=== PATIENT | female | born 1980 | race Caucasian/White ===

== ENCOUNTER 2016-09-03 20:12 | Observation (INO) | payer OTHER ==
[~2016-09-03] VITALS: Ht 167.6 cm; Wt 86.3 kg
--- NOTE | ~2016-09-03 | EKG ---
[place] [address] [facility] [place] [address] ELECTROCARDIOGRAM REPORT Name: RONALD IRWIN FILIFEUGENRooharmeet #: REG [facility]PITALTonya#: [id number] Admission: 09/03/16 Attend Phys: Discharge: Date of : 84 Report #: [id number] THIS REPORT FOR: //name// [facility] ED Test Date: 2016-09-03 Test Time: 20:30:45 Pat Name: RONALD IRWIN Department: Room: Gender: F [employer] Supervisor: REA : 1980 Requested By: Samira Still Order Number: [id number] MD: Monster Rodriguez Measurements Intervals Barnes Rate: 69 P: 4 HI: 162 QRS: 78 QRSD: 89 T: 47 QT: 399 QTc: 428 Interpretive Statements Sinus rhythm Low voltage, precordial leads Compared to ECG 07/14/2015 20:05:12 No significant changes Electronically Signed On 09-03-2016 22:12:32 CDT by Monster Rodriguez [email or web address] <ELECTRONICALLY SIGNED> By: Monster Rodriguez MD 09/03/16 2212 29 29 Monster Rodriguez MD /MARYLIN
--- NOTE | ~2016-09-03 | 2DMMODE ---
[facility] [address] [place] [address] 2 D/M-MODE ECHOCARDIOGRAM Name: RONALD IRWINNRoom #: 441-P ADM IN M.R.#: [id number] Admission: 09/03/16 Attend Phys: Reagan Adam, Discharge: Date of : 84 Date of Service: 09/04/16 1100 Report #: [id number] THIS REPORT FOR: //name// APPROVED REPORT Study performed: 09/04/2016 09:49:30 EXAM: Comprehensive 2D, Doppler, and color-flow Echocardiogram Patient Location: Echo lab Room #: 441 Status: routine Other Information Study Quality: Adequate Indications Chest Pain Post , SOA, AFIB 2D Dimensions RVDd: 38.37 mm LVEF(%): 68.10 (>50%) IVSd: 9.53 (7-11mm) LVOT Diam: 20.65 (18-24mm) LVDd: 48.88 mm PWd: 10.66 (7-11mm) Ascending Ao: 27.18 (22-36mm) LVDs: 30.27 (25-40mm) Aortic Root: 30.75 mm Maria's LVEF: 68.10 % Volumes Left Atrial Volume (Systole) Single Plane 4CH: 41.33 mL Single Plane 2CH: 48.81 mL LA ESV Index: 24.00 mL/m2 Aortic Valve AoV Peak Jeremy.: 1.36 m/s AO Peak Gr.: 7.44 mmHg LVOT Max P.12 mmHg LVOT Max V: 1.13 m/s RUSS Vmax: 2.78 cm2 Mitral Valve E/A Ratio: 1.0 MV Decel. Time: 328.81 ms MV E Max Jeremy.: 0.69 m/s MV A Jeremy.: 0.68 m/s MV PHT: 95.36 ms [facility] [place] [address] 2 D/M-MODE ECHOCARDIOGRAM Name: RONALD IRWINNRoom #: 441-P ADM IN M.R.#: [id number] Admission: 09/03/16 Attend Phys: Reagan Adam, Discharge: Date of : 84 Date of Service: 09/04/16 1100 Report #: [id number] IVRT: 96.89 ms Pulmonary Valve PV Peak Jeremy.: 1.25 m/s PV Peak Gr.: 6.24 mmHg Pulmonary Vein P Vein S: 0.63 m/s P Vein A: 0.34 m/s P Vein D: 0.58 m/s P Vein A Dur.: 101.5 msec P Vein S/D Ratio: 1.09 Tricuspid Valve TR Peak Jeremy.: 2.03 m/s RAP Estimate: 5.00 mmHg TR Peak Gr.: 16.43 mmHg PA Pressure: 21.00 mmHg Left Ventricle The left ventricle is normal size. There is normal LV segmental wall motion. There is normal left ventricular wall thickness. The left ventricular systolic function is normal. The left ventricular ejection fraction is within the normal range. LVEF is 65%. The left ventricular diastolic function is normal. Right Ventricle The right ventricle is normal size. Atria The left atrium size is normal. The right atrium size is normal. Aortic Valve The aortic valve is normal in structure. No aortic regurgitation is present. There is no aortic valvular stenosis. Mitral Valve The mitral valve is normal in structure. Trace mitral regurgitation. No evidence of mitral valve stenosis. Tricuspid Valve The tricuspid valve is normal in structure. There is trace tricuspid regurgitation. The right atrial pressure is estimated at 5 mmHg. There is no pulmonary hypertension. Pulmonic Valve The pulmonary valve is normal in structure. There is no pulmonic [place] [address] 2 D/M-MODE ECHOCARDIOGRAM Name: RONALD IRWIN WITBOLSFEUGENRoom #: 441-P ADM IN M.R.#: [id number] Admission: 09/03/16 Attend Phys: Reagan Adam, Discharge: Date of : 84 Date of Service: 09/04/16 1100 Report #: [id number] Great Vessels The aortic root is normal in size. The ascending aorta is normal in size. IVC is normal in size and collapses >50% with inspiration. Pericardium There is no pericardial effusion. <Conclusion> 1. Normal echocardiogram with Doppler. EF 65% 2. No pericardial effusion <ELECTRONICALLY SIGNED> By: Luis Felipe Wilson MD, FACC 09/04/16 1100 1100 1100 Luis Felipe Wilson MD, FACC /INF
[~2016-09-03 20:12] MED LIST: BAYER CHEWABLE81 MG PO; COLACE100 MG PO; CYMBALTA20 MG; DARVOCET-N 1001 EACH PO; DILAUDID2 M1 PO; DOXYCYCLINE 10100 M1 PO; FLEXERIL PO; IBUPROFEN 800800 MG PO; IRON325 PO; LOESTRIN1 EAC1 PO; LOW-OGESTREL1 EACH; MULTIVITAMINS PO; NORCO 5-325 TA1 EACH PO; NORFLEX100 MG PO; OXECTA5 MG PO; PERCOCET 5-3251 EACH PO; PERCOCET 7.5-31 EACH PO; PERCOCET PO; PROTONIX40 M2 PO; SENNA; SINGULAIR 10 MG10 MG PO; TRAMADOL 50 MG50 MG PO; TRINATE TABLET1 TAB PO; ULTRAM 50MG TAB50 MG PO; VENTOLIN HFA 1818 GM INH; ZOFRAN4 MG PO; ZYRTEC10 M2 PO
[2016-09-03 20:13] VITALS: BP 154/98
[2016-09-03] MEDS ORDERED: ENOXAPARIN40 MG/0.1 SUBQ (20:35)
[2016-09-03 20:47] LABS: ABSOLUTE NEUTROPHILS 5.1 thou/uL (1.4-8.2); BASOPHILS 0.5 % (0.0-2.0); EOSINOPHILS 1.2 % (0.0-3.0); HEMATOCRIT 36.5 % (37.0-47.0); HEMOGLOBIN 12.3 gm/dL (12.0-15.0); LYMPHOCYTES 23.8 % (24.0-44.0); MCH 30.1 pg (26.0-34.0); MCHC 33.6 g/dL (28.0-37.0); MCV 89.6 fL (80.0-100.0); MONOCYTES 6.4 % (1.0-8.0); PLATELET COUNT 201 thou/uL (150-400); POLYS 68.1 % (36.0-66.0); RBC 4.08 mil/uL (4.20-5.00); RDW 15.4 % (10.5-14.5); WBC 7.4 thou/uL (4.0-11.0)
[2016-09-03 20:51] LABS: MANUAL DIFF NO
[2016-09-03 20:56] LABS: CALCIUM 8.2 mg/dL (8.5-10.1); CREATININE 0.9 mg/dL (0.6-1.0); POTASSIUM 3.6 mmol/L (3.5-5.1)
[2016-09-03 21:01] LABS: ALBUMIN 3.4 g/dL (3.4-5.0); TOTAL BILIRUBIN 0.3 mg/dL (<0.1-1.0); TOTAL PROTEIN 6.8 g/dL (6.4-8.2)
[2016-09-03 21:04] LABS: APTT 28.3 Seconds (24.5-32.8); INR 1.1; PROTIME 11.2 Seconds (9.3-11.4)
[2016-09-03 23:02] VITALS: BP 144/79; BP 162/69
[2016-09-03 23:36] VITALS: BP 136/60
[2016-09-04 05:42] VITALS: BP 133/80
[2016-09-04 16:16] VITALS: BP 133/80
[2016-09-04 16:49] VITALS: BP 133/80
== END 2016-09-04 16:25 | disposition home or self-care (01) ==
LOC: ER 20:12 → 4S 22:48 → EROBS 22:48 → 4S 23:10
PROVIDERS: Physician Assistant
DX: R07.9 Chest pain, unspecified (principal); R20.0 Anesthesia of skin; M79.602 Pain in left arm; R00.0 Tachycardia, unspecified; R51 Headache; S63.509A Unspecified sprain of unspecified wrist, initial encounter; Z86.73 Personal history of transient ischemic attack (TIA), and cerebral infarction without residual deficits; X58.XXXA Exposure to other specified factors, initial encounter; Y93.89 Activity, other specified; Y92.89 Other specified places as the place of occurrence of the external cause; Y99.8 Other external cause status; Z72.89 Other problems related to lifestyle
CPT/HCPCS: 10100

== ENCOUNTER → 2018-05-13 | Outpatient (CLI) | payer OTHER ==
[~2018-05-13] MED LIST changes: +ENOXAPARIN40 MG/0.1 SUBQ
== END ==
LOC: CAT 11:41
DX: S69.92XA Unspecified injury of left wrist, hand and finger(s), initial encounter (principal); S69.91XA Unspecified injury of right wrist, hand and finger(s), initial encounter; M85.89 Other specified disorders of bone density and structure, multiple sites; W19.XXXA Unspecified fall, initial encounter; Y93.89 Activity, other specified; Y92.89 Other specified places as the place of occurrence of the external cause; Y99.8 Other external cause status; Z87.81 Personal history of (healed) traumatic fracture; Z68.25 Body mass index [BMI] 25.0-25.9, adult